=== PATIENT | male | born 1995 | race Caucasian/White ===

== ENCOUNTER 2023-03-14 20:19 | Emergency (ER) | payer SELFPAY ==
[2023-03-14 20:22] VITALS: BP 114/76; PULSE 66; RESP 16; TEMP 36.4; O2SAT 99; BMI 20.3
--- NOTE | 2023-03-14 20:26 | ECG_ITS ---
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 Measurements Intervals [place] Rate: 68 P: -36 [place]: 135 QRS: -69 QRSD: 125 T: 53 QT: 398 QTc: 424 Interpretive Statements SINUS RHYTHM WITH SINUS ARRHYTHMIA LEFT AXIS DEVIATION [QRS AXIS < -30] RIGHT BUNDLE BRANCH BLOCK [120+ ms QRS DURATION, UPRIGHT V1, 40+ ms S IN I/aVL/V4/V5/V6] No previous ECG available for comparison Electronically Signed On 03-15-2023 5:55:12 CDT by Doris Fierro M.D. [id number]
--- NOTE | 2023-03-14 21:47 | ECG_ITS ---
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 Measurements Intervals [place] Rate: 69 P: 4 [place]: 130 QRS: -60 QRSD: 108 T: 56 QT: 372 QTc: 399 Interpretive Statements SINUS RHYTHM LEFT ANTERIOR FASCICULAR BLOCK [QRS AXIS <= -45, QR IN I, RS IN II] Compared to ECG 03/14/2023 20:31:09 Left anterior fascicular block now present Sinus arrhythmia no longer present Left-axis deviation no longer present Right bundle-branch block no longer present Electronically Signed On 03-15-2023 5:54:04 CDT by Doris Fierro M.D. [id number]
--- NOTE | 2023-03-14 22:09 | XRR_ITS ---
PROCEDURE INFORMATION: Exam: XR Chest Exam date and time: 03/14/2023 10:18 PM Age: 27 years old Clinical indication: Chest pressure and right-sided; Patient HX: PT states R sided chest pain while walking; Additional info: Cp TECHNIQUE: Imaging protocol: Radiologic exam of the chest. Views: 1 view. COMPARISON: No relevant prior studies available. FINDINGS: Lungs: The lungs are clear. Pleural spaces: A moderate to large right pneumothorax is noted. Heart/Mediastinum: Unremarkable. No cardiomegaly. No mediastinal shift. Bones/joints: Unremarkable. XR/XR chest 1V portable [id number] IMPRESSION: Moderate to large right pneumothorax.
[2023-03-14 22:28] LABS: Basophils # 0.1 10^3/uL (0.0-0.1); Basophils % 0.4 %; Eosinophils # 0.1 10^3/uL (0.0-0.8); Eosinophils % 0.5 %; Hematocrit 43.1 % (42.0-52.0); Hemoglobin 15.1 g/dL (11.7-16.6); Lymphocytes # 2.7 10^3/uL (0.8-4.8); Mean Corpuscular Hemoglobin 30.2 pg (28.0-34.0); Mean Corpuscular Volume 86.2 fl (80-94); Mean Platelet Volume 8.9 fL (7.4-10.4); Monocytes # 0.8 10^3/uL (0.2-0.9); Monocytes % 4.1 %; Neutrophils % 80.7 %; Nucleated Red Blood Cells % 0 %; Platelet Count 267 10^3/cmm (130-400); Red Cell Distribution Width 12.6 % (12.1-15.1); White Blood Count 19.1 10^3/uL (4.0-10.0)
[2023-03-14 22:39] VITALS: BP 127/74; PULSE 87; RESP 16; O2SAT 100
[2023-03-14 22:43] LABS: D Dimer <= 0.27 ug/mIFEU (0-0.59)
[2023-03-14 22:43] LABS: Charge for UA Resulting for Rev
[2023-03-14 22:45] LABS: Alanine Aminotransferase 17 U/L (0-41); Albumin Level 4.9 g/dL (3.5-5.2); Alkaline Phosphatase 60 U/L (40-130); Anion Gap 17.6 (5-19); Aspartate Amino Transferase 20 U/L (0-40); Blood Urea Nitrogen 14 mg/dL (6-20); Calcium 9.3 mg/dL (8.5-10.5); Carbon Dioxide 21 mmol/L (22-29); Chloride 104 mmol/L (98-107); Globulin 2.3 g/dL (1.3-4.6); Glomerular Filtration Rate 135.3 mL/min (90-130); Glucose 102 mg/dL (65-115); Osmolality Calculated 289 mOsm/kg (285-295); Potassium 3.6 mmol/L (3.5-5.1); Sodium 139 mmol/L (136-145); Total Bilirubin 1.4 mg/dL (0.15-1.2); Total Protein 7.2 g/dL (6.6-8.7)
[2023-03-14 22:53] LABS: Amphetamines Screen Urine Negative (Negative); Barbiturates Screen Urine Negative (Negative); Benzodiazepines Screen Urine Negative (Negative); Cocaine Screen Urine Negative (Negative); Opiate Screen Urine Negative (Negative); PCP Screen Urine Negative (Negative); THC Screen Urine Positive (Negative)
[2023-03-14 22:58] LABS: Troponin(5th) Baseline < 6 ng/L (0-15)
[2023-03-14 23:00] LABS: Bilirubin Urine Neg (Negative); Blood Urine Neg (Negative); Glucose Urine UA Norm (Normal); Ketones Urine 1+ (Negative); Leukocyte Esterase Urine Negative (Negative); Nitrate Urine Negative (Negative); Protein Urine Neg (Negative); Urine Appearance Clear (CLEAR); Urine Color Yellow (Yellow); Urobilinogen Urine 1 mg/dL (Negative); pH Urine 6 (5-7)
[2023-03-14 23:01] LABS: Add Urine Microscopic? NO
[2023-03-14] MEDS: fentaNYL 50 mcg/mL INJ 2mL IVP (23:15)
[2023-03-14] MEDS: lidocaine 1% INJ 10 mL (per mL) 20 ML INJECTION (23:15)
--- NOTE | 2023-03-14 23:15 | PC.NURSE ---
Dr. Aparicior to room for chest tube insertion. 50mcg fentanyl given SIVP per md's verbal order. MD administered 200mg lidocaine at insertion site. 1532 tube inserted and connected to drainage system. water moving with inspiration and exhalation. pt verbalizes feeling better and ease of breathing. pt tolerated procedure without difficulty.
--- NOTE | 2023-03-14 23:25 | XRR_ITS ---
PROCEDURE INFORMATION: Exam: XR Chest Exam date and time: 03/14/2023 11:27 PM Age: 27 years old Clinical indication: Thoravent placement TECHNIQUE: Imaging protocol: Radiologic exam of the chest. Views: 1 view. COMPARISON: CR (CHEST, ) 03/14/2023 10:18 PM XR/XR chest 1V portable [id number] IMPRESSION: A chest tube has been placed in the superior right hemithorax. The right pneumothorax has slightly decreased in size since the prior exam. No other significant change.
--- NOTE | 2023-03-14 23:46 | PM.CONSULT ---
Providers/Reason For Consult Consulting Physician/Specialty*: Anil Crump MD/pulmonary critical care Reason for Consult*: Spontaneous pneumothorax Requesting Physician: Zbigniew Maya Primary Care Provider: Serg Nunez History of Present Illness History of Present Illness Zbigniew Ma is a 27 year old male comes to emergency room with sudden onset chest pain, pleuritic in nature today evening. Patient reported he does not have any medical problems and has not seen a physician in the last 10 years. Admitted smoking marijuana daily. Chest x-ray on admission showed moderate to large right pneumothorax with no mediastinal shift. Patient is hemodynamically stable and saturating 100% on room air. Dr. Cuello consulted pulmonary critical care for Thora vent placement in order to facilitate outpatient management and patient was hemodynamically stable. Patient was seen in the ED-he was anxious about Thora vent placement. His vitals are stable with 100% saturation on room air, normal blood pressure and heart rate Patient's father was at bedside. Father said he had similar spontaneous pneumothorax when he was in the [employer] requiring a 20-day hospitalization with a chest tube to suction and finally ended up having thoracoscopic procedure for ??? Bullectomy. Patient reported that his breathing has somewhat improved but still feels some discomfort. Review of Systems General: Reports: 10 or more systems reviewed and unremarkable except in HPI and below Vitals/I&O/Wt Last Vital Signs Temp 97.5 F L 03/14/23 20:22 Pulse 87 03/14/23 22:39 Resp 16 03/14/23 22:39 BP 127/74 03/14/23 22:39 Pulse Ox 100 03/14/23 22:39 O2 Del Method Room Air 03/14/23 20:22 Weight last 48 hrs Weight 130 lb Physical Exam Narrative: General: alert, NAD HEENT: conj clear, EOMI, PERRL, mmm, Neck: supple, no meningismus Heme: no cervical LAP Respiratory: Inspection: No visible deformity of the chest wall, appears somewhat subcutaneous emphysema with mild crepitus Palpation: bilateral symmetric expansion Percussion: tympanic percussion note on right anterior chest Auscultation: Reduced breath sounds right upper lung zone, other areas normal breath sounds Cardiovascular: rrr, nl s1s2, no mrg Abdomen: soft, nt, nd, no r/g, bs+ Extremities: pulses +, no edema, no c/c : no CVA tenderness Skin: intact, no rash MSK: no back or neck pain Neurologic: grossly intact Data 03/14/23 22:21 03/14/23 22:21 Other Labs: Radiology Impressions Chest X-Ray 03/14/23 23:25 IMPRESSION: A chest tube has been placed in the superior right hemithorax. The right pneumothorax has slightly decreased in size since the prior exam. No other significant change. Laboratory Results WBC 19.1 10^3/uL (4.0-10.0) H 03/14/23 22:21 RBC 5.00 10^6/uL (4.1-5.3) 03/14/23 22:21 Hgb 15.1 g/dL (11.7-16.6) 03/14/23 22:21 Hct 43.1 % (42.0-52.0) 03/14/23 22:21 MCV 86.2 fl (80-94) 03/14/23 22:21 MCH 30.2 pg (28.0-34.0) 03/14/23 22:21 MCHC 35.0 g/dL (30.0-36.0) 03/14/23 22:21 RDW 12.6 % (12.1-15.1) 03/14/23 22:21 Plt Count 267 10^3/cmm (130-400) 03/14/23 22:21 MPV 8.9 fL (7.4-10.4) 03/14/23 22:21 Neut % (Auto) 80.7 % 03/14/23 22:21 Lymph % (Auto) 14.0 % 03/14/23 22:21 [place] % (Auto) 4.1 % 03/14/23 22:21 Eos % (Auto) 0.5 % 03/14/23 22:21 Baso % (Auto) 0.4 % 03/14/23 22:21 Neut # (Auto) 15.40 10^3/uL (1.8-7.7) H 03/14/23 22:21 Lymph # (Auto) 2.7 10^3/uL (0.8-4.8) 03/14/23 22:21 [place] # (Auto) 0.8 10^3/uL (0.2-0.9) 03/14/23 22:21 Eos # (Auto) 0.1 10^3/uL (0.0-0.8) 03/14/23 22:21 Baso # (Auto) 0.1 10^3/uL (0.0-0.1) 03/14/23 22:21 Nucleated RBC % (auto) 0 % 03/14/23 22:21 Nucleated RBCs # 0.0 /100WBC 03/14/23 22:21 D-Dimer <= 0.27 ug/mIFEU (0-0.59) 03/14/23 22:21 Sodium 139 mmol/L (136-145) 03/14/23 22:21 Potassium 3.6 mmol/L (3.5-5.1) 03/14/23 22:21 Chloride 104 mmol/L (98-107) 03/14/23 22:21 Carbon Dioxide 21 mmol/L (22-29) L 03/14/23 22:21 Anion Gap 17.6 (5-19) 03/14/23 22:21 BUN 14 mg/dL (6-20) 03/14/23 22:21 Creatinine 0.7 mg/dL (0.7-1.2) 03/14/23 22:21 GFR Calculation 135.3 mL/min (90-130) H 03/14/23 22:21 Glucose 102 mg/dL (65-115) 03/14/23 22:21 Calculated Osmolality 289 mOsm/kg (285-295) 03/14/23 22:21 Calcium 9.3 mg/dL (8.5-10.5) 03/14/23 22:21 Total Bilirubin 1.4 mg/dL (0.15-1.2) H 03/14/23 22:21 AST 20 U/L (0-40) 03/14/23 22:21 ALT 17 U/L (0-41) 03/14/23 22:21 Alkaline Phosphatase 60 U/L (40-130) 03/14/23 22:21 Troponin T Baseline < 6 ng/L (0-15) 03/14/23 22:21 Total Protein 7.2 g/dL (6.6-8.7) 03/14/23 22:21 Albumin 4.9 g/dL (3.5-5.2) 03/14/23 22:21 Globulin 2.3 g/dL (1.3-4.6) 03/14/23 22:21 Urine Color Yellow (Yellow) 03/14/23 22:33 Urine Appearance Clear (CLEAR) 03/14/23 22:33 Urine pH 6 (5-7) 03/14/23 22:33 Ur Specific [place] 1.020 (1.005-1.030) 03/14/23 22:33 Urine Protein Neg (Negative) 03/14/23 22:33 Urine Glucose (UA) Norm (Normal) 03/14/23 22:33 Urine Ketones 1+ (Negative) H 03/14/23 22:33 Urine Blood Neg (Negative) 03/14/23 22:33 Urine Nitrate Negative (Negative) 03/14/23 22: Urine Bilirubin Neg (Negative) 03/14/23 22:33 Urine Urobilinogen 1 mg/dL (Negative) H 03/14/23 22:33 Ur Leukocyte Esterase Negative (Negative) 03/14/23 22:33 Urine Opiates Screen Negative ng/mL (Negative) 03/14/23 22:33 Ur Barbiturates Screen Negative ng/mL (Negative) 03/14/23 22:33 Ur Phencyclidine Scrn Negative ng/mL (Negative) 03/14/23 22:33 Ur Amphetamines Screen Negative ng/mL (Negative) 03/14/23 22:33 U Benzodiazepines Scrn Negative ng/mL (Negative) 03/14/23 22:33 Urine Cocaine Screen Negative ng/mL (Negative) 03/14/23 22:33 U Marijuana (THC) Screen Positive ng/mL (Negative) H 03/14/23 22:33 A&P Assessment and plan (1) Spontaneous pneumothorax: (2) Marijuana user: Plan #Spontaneous pneumothorax -Patient admitted using marijuana daily-which is a risk factor for developing spontaneous pneumothoraces -Chest x-ray showed moderate to large right pneumothorax with no mediastinal shift -13 Polish Thora vent placed and connected to suction temporarily -Repeat chest x-ray 45 minutes later-continued improvement of right pneumothorax with some residual apical pneumothorax still present. -We will obtain a CT chest to check for any underlying cystic lung disease; father gives similar history of spontaneous pneumothorax which required 20-day hospitalization with chest tube followed by bleb resection. -Patient can be discharged home with Thora vent and and can follow-up as outpatient either with me or CT surgeon depending on availability. We will make necessary arrangements. -Patient is instructed to come to emergency room if there is worsening shortness of breath and chest pain Consult Attestations Medical Necessity Statement: Patient is hemodynamically stable and his pneumothorax is improving after placing Thora vent Time Spent in Patient Care: Greater than 35 minutes (>than 50% of time spent in counselling and/or direct pt care on unit). Critical Care Time: The high probability of a clinically significant, sudden or life threatening deterioration of the patient's [pulmonary] system(s) required my full and direct attention, intervention and personal management. The critical care time is as shown. This time is in addition to time spent performing any reported procedures but includes the following: [x] Data and vital sign review and interpretation [x] Patient assessment, examination and intervention [x] Documentation [x] Medication orders and management Critical Care Time (min): 72 Coding Level of Care Code 64457 Diagnoses Spontaneous pneumothorax J93.83 Marijuana user F12.90 Time Spent (min) 72
--- NOTE | 2023-03-14 23:47 | P.OP_ITS ---
Operative Report Date of procedure: March 14, 2023 Procedure done: 13 Tunisian right Thora vent placement Surgeon: Present Markusr MD SUBRAMANIAN Brief History: 27-year-old Mr. Zbigniew Montgomery, daily cannabis user-presented to emergency room with increased pleuritic chest pain, on admission chest x-ray showed moderate to large right pneumothorax. Pulmonary critical care consulted for Thora vent placement Procedure: Date of procedure: 03/14/2023 Pre-op Diagnosis: Spontaneous pneumothorax Post-op diagnosis: same Procedure Done: 13 Tunisian thoracic vent placement Pathology: none sent Environmental Control Administrator: Anil Crump MD [facility] Anesthesia: Local Complications: None: Post procedure chest x-ray reveals lung expansion without evidence for pneumothorax Condition: Stable Brief History: 13 Tunisian thoracic vent placement His right anterior chest wall was then sterilely prepped and draped. 1% lidocaine was infiltrated in the mid clavicular line over the second intercostal space. A #11 scalpel blade was used to incise the skin. Next, a trocar 13 Tunisian thoracic vent was inserted through the incision and then by direct firm and controlled pressure into the right pleural space where the vent was advanced over the trocar as it was removed. There was a prompt return of air. The vent was secured to the skin with adhesive tabs and also with 2-0 silk suture. The vent was then connected to Pleur-evac suction where further air was evacuated. Vital signs remained stable throughout the procedure. Dressings were secured. I did risk reduction counselor patient and his father at the completion of the procedure. 45 minutes post procedure chest x-ray: Continued improvement of the right pneumothorax compared to prior exam. A small right pneumothorax remains. Complications: None
--- NOTE | 2023-03-14 23:48 | ED_ITS ---
HPI - Chest Pain General: Chief Complaint: Chest Pain Stated Complaint: SOB, chest pain Time Seen by Provider: 03/14/23 21:36 Source: patient History of Present Illness: Healthy 27-year-old male presenting with right-sided pleuritic type chest pain while at work. He notes his pain is much improved on examination. No fever. No cough. 10/10 pain initially. Pain does worsen a bit with deep inspiration. No long car trips. No swollen legs. He is mildly short of breath. MD complaint: chest pain Pertinent past history: other Onset (ago): hour(s) Timing of current episode: constant Prior episodes: No Onset: during exertion (mild) Pain location: right chest Pain radiation: none Severity: moderate Quality: sharp Relieving factors: other Exacerbating factors: inspiration Associated symptoms: Reports dyspnea; Deny abdominal pain, diaphoresis, fever(s), leg edema, nausea, palpitations or vomiting Treatment prior to arrival: none Review of Systems Const: Denies: fever(s) or diaphoresis ENMT: Denies: throat pain Card: Reports: chest pain; Denies: palpitations Resp: Reports: dyspnea; Denies: productive cough or non-productive cough GI: Denies: abdominal pain, nausea or vomiting Psych: Reports: anxiety Physical Exam Const: COMMON NORMALS: no acute distress GENERAL APPEARANCE: cooperative; not ill appearing and not frail appearing HENMT: COMMON NORMALS: normocephalic, atraumatic and Normal external nose present HEAD & SCALP: normocephalic and atraumatic FACE & SINUS: normal facial exam and face symmetric NOSE: Normal external nose present Eye: COMMON NORMALS: Equal, round and reactive pupils present and EOMs intact bilaterally PUPIL: Yes Equal, round and reactive pupils present Neck/C-Spine: GENERAL: Yes trachea midline Chest: CHEST: Yes Symmetrical chest wall rise Resp: COMMON NORMALS: normal respiratory effort, No retractions, No use of accessory muscles and clear to auscultation bilaterally AUSCULTATION: clear to auscultation bilaterally Cardio: COMMON NORMALS: regular rate and regular rhythm RATE: regular rate RHYTHM: regular rhythm GI: COMMON NORMALS: Normal to inspection, nondistended, normoactive bowel sounds present Extremity: COMMON NORMALS: no pedal edema Neuro: CURTIS COMA SCALE: document GCS findings [place] coma scale eye opening: Spontaneous Curtis coma scale verbal response: Orientated Curtis coma scale motor response: Obey commands Curtis coma scale total score: 15 SENSORY EXAM: Yes extremities (intact) Psych: COMMON NORMALS: speech normal SPEECH: Yes normal speech Skin: COMMON NORMALS: no rashes or lesions noted GENERAL SKIN EXAM: no rashes or lesions noted Course Vital Signs: Vital signs: Vital Signs Temperature 97.5 F L 03/14/23 20:22 Pulse Rate 80 03/15/23 00:07 Respiratory Rate 21 H 03/15/23 00:07 Blood Pressure 132/75 03/15/23 00:07 Pulse Oximetry 100 03/15/23 00:07 Oxygen Delivery Me thod Room Air 03/15/23 00:07 MDM - Chest Pain Medical Decision Making EKG showed sinus rhythm with normal axis. Rate of 70. No acute ST changes. Intervals are normal. Chest x-ray revealed approximately 40% simple pneumothorax on the right. Leukocytosis is 19. Other laboratory is benign. Vitals been stable. Heart rate has been in the 60s and 70s. Blood pressure normal. Saturations been 98 to 100% on room air. Consulted with pulmonology. He has agreed to come in for Thora vent placement given nature of simple pneumothorax. He is at the bedside currently. Successful Thora vent placement by pulmonology. CT reveals Thora vent in appropriate position. Pneumothorax is slowly reducing in size. Pulmonology wishes the patient to follow-up with them or chest surgery this coming week regarding repeat imaging and possibly pulling the tube. He knows to return for worsening shortness of breath or other symptoms in the meantime Lab Data 03/14/23 22:21 03/14/23 22:21 Radiology Impressions Chest X-Ray 03/15/23 00:05 IMPRESSION: Continued improvement of the right pneumothorax is appreciated compared to the prior exam. A small right pneumothorax remains. No other change. Laboratory Results WBC 19.1 10^3/uL (4.0-10.0) H 03/14/23 22:21 RBC 5.00 10^6/uL (4.1-5.3) 03/14/23 22:21 Hgb 15.1 g/dL (11.7-16.6) 03/14/23 22:21 Hct 43.1 % (42.0-52.0) 03/14/23 22:21 MCV 86.2 fl (80-94) 03/14/23 22:21 MCH 30.2 pg (28.0-34.0) 03/14/23 22:21 MCHC 35.0 g/dL (30.0-36.0) 03/14/23 22:21 RDW 12.6 % (12.1-15.1) 03/14/23 22:21 Plt Count 267 10^3/cmm (130-400) 03/14/23 22:21 MPV 8.9 fL (7.4-10.4) 03/14/23 22:21 Neut % (Auto) 80.7 % 03/14/23 22:21 Lymph % (Auto) 14.0 % 03/14/23 22:21 [place] % (Auto) 4.1 % 03/14/23 22:21 Eos % (Auto) 0.5 % 03/14/23 22:21 Baso % (Auto) 0.4 % 03/14/23 22:21 Neut # (Auto) 15.40 10^3/uL (1.8-7.7) H 03/14/23 22:21 Lymph # (Auto) 2.7 10^3/uL (0.8-4.8) 03/14/23 22:21 [place] # (Auto) 0.8 10^3/uL (0.2-0.9) 03/14/23 22:21 Eos # (Auto) 0.1 10^3/uL (0.0-0.8) 03/14/23 22:21 Baso # (Auto) 0.1 10^3/uL (0.0-0.1) 03/14/23 22:21 Nucleated RBC % (auto) 0 % 03/14/23 22:21 Nucleated RBCs # 0.0 /100WBC 03/14/23 22:21 D-Dimer <= 0.27 ug/mIFEU (0-0.59) 03/14/23 22:21 Sodium 139 mmol/L (136-145) 03/14/23 22:21 Potassium 3.6 mmol/L (3.5-5.1) 03/14/23 22:21 Chloride 104 mmol/L (98-107) 03/14/23 22:21 Carbon Dioxide 21 mmol/L (22-29) L 03/14/23 22:21 Anion Gap 17.6 (5-19) 03/14/23 22:21 BUN 14 mg/dL (6-20) 03/14/23 22:21 Creatinine 0.7 mg/dL (0.7-1.2) 03/14/23 22:21 GFR Calculation 135.3 mL/min (90-130) H 03/14/23 22:21 Glucose 102 mg/dL (65-115) 03/14/23 22:21 Calculated Osmolality 289 mOsm/kg (285-295) 03/14/23 22:21 Calcium 9.3 mg/dL (8.5-10.5) 03/14/23 22:21 Total Bilirubin 1.4 mg/dL (0.15-1.2) H 03/14/23 22:21 AST 20 U/L (0-40) 03/14/23 22:21 ALT 17 U/L (0-41) 03/14/23 22:21 Alkaline Phosphatase 60 U/L (40-130) 03/14/23 22:21 Troponin T Baseline < 6 ng/L (0-15) 03/14/23 22:21 Total Protein 7.2 g/dL (6.6-8.7) 03/14/23 22:21 Albumin 4.9 g/dL (3.5-5.2) 03/14/23 22:21 Globulin 2.3 g/dL (1.3-4.6) 03/14/23 22:21 Urine Color Yellow (Yellow) 03/14/23 22:33 Urine Appearance Clear (CLEAR) 03/14/23 22:33 Urine pH 6 (5-7) 03/14/23 22:33 Ur Specific [place] 1.020 (1.005-1.030) 03/14/23 22:33 Urine Protein Neg (Negative) 03/14/23 22:33 Urine Glucose (UA) Norm (Normal) 03/14/23 22:33 Urine Ketones 1+ (Negative) H 03/14/23 22:33 Urine Blood Neg (Negative) 03/14/23 22:33 Urine Nitrate Negative (Negative) 03/14/23 22:33 Urine Bilirubin Neg (Negative) 03/14/23 22:33 Urine Urobilinogen 1 mg/dL (Negative) H 03/14/23 22:33 Ur Leukocyte Esterase Negative (Negative) 03/14/23 22:33 Urine Opiates Screen Negative ng/mL (Negative) 03/14/23 22:33 Ur Barbiturates Screen Negative ng/mL (Negative) 03/14/23 22:33 Ur Phencyclidine Scrn Negative ng/mL (Negative) 03/14/23 22:33 Ur Amphetamines Screen Negative ng/mL (Negative) 03/14/23 22:33 U Benzodiazepines Scrn Negative ng/mL (Negative) 03/14/23 22:33 Urine Cocaine Screen Negative ng/mL (Negative) 03/14/23 22:33 U Marijuana (THC) Screen Positive ng/mL (Negative) H 03/14/23 22:33 Discharge Plan Discharge Patient Disposition: Home Clinical Impression: Pneumothorax Condition: Stable Discharge Orders: Discharge ED (Routine); Ordered 03/15/23 Ordered By: Zbigniew Cuello Referrals: DatarAnil MD [Physician] - 4-7 days Serg Nunez FNP [Primary Care Provider] - Patient Instructions: Spontaneous Pneumothorax (ED) Activity Restrictions/Additional Instructions: Follow-up with pulmonology/chest surgery as directed. You will receive a call on Friday or Friday related to this. Return immediately to the ER for fever greater than 100, increasing shortness of breath, increasing chest discomfort, any other concerning symptoms. Chest catheter care per your aircraft magneto mechanic's direction. Coding Level of Care Code ED [employer] for Vance Yadav
--- NOTE | 2023-03-15 00:05 | XRR_ITS ---
PROCEDURE INFORMATION: Exam: XR Chest Exam date and time: 03/15/2023 12:08 AM Age: 27 years old Clinical indication: Device placement; Chest tube; Patient HX: Pneumo TECHNIQUE: Imaging protocol: Radiologic exam of the chest. Views: 1 view. COMPARISON: CR (CHEST, ) 03/14/2023 11:27 PM XR/XR chest 1V portable [id number] IMPRESSION: Continued improvement of the right pneumothorax is appreciated compared to the prior exam. A small right pneumothorax remains. No other change.
[2023-03-15 00:07] VITALS: BP 132/75; PULSE 80; RESP 21; O2SAT 100
--- NOTE | 2023-03-15 00:24 | CTR_ITS ---
PROCEDURE INFORMATION: Exam: CT Chest Without Contrast; Diagnostic Exam date and time: 03/15/2023 1:08 AM Age: 27 years old Clinical indication: Other: Pneumo; Prior surgery; Surgery date: Post-operative (0-2 days); Surgery type: Chest tube; Additional info: R pneumothorax TECHNIQUE: Imaging protocol: Diagnostic computed tomography of the chest without contrast. Total images: 1 Radiation optimization: All CT scans at this facility use at least one of these dose optimization techniques: automated exposure control; mA and/or kV adjustment per patient size (includes targeted exams where dose is matched to clinical indication); or iterative reconstruction. REPORTING DATA: Count of CT and Cardiac NM exams in prior 12 months: This patient has received 0 known CTs and 0 known cardiac nuclear medicine studies in the 12 months prior to the current study. COMPARISON: CR (CHEST, ) 03/15/2023 12:08 AM RADIATION DOSE METRICS: Total DLP (mGy-cm): 259.36 FINDINGS: Tubes, catheters and devices: Small bore right chest tube entering superior pleural space from an anterior approach. Small amount of subcutaneous emphysema in the left chest wall. Lungs: See Pleural spaces finding. Pleural spaces: Moderate right pneumothorax with posterior dependent and minimal anterior atelectasis. Heart: Unremarkable. No cardiomegaly. No pericardial effusion. Coronary arteries: No coronary arterial calcification is detected. Lymph nodes: Unremarkable. No enlarged lymph nodes. Vasculature: Unremarkable. No aortic aneurysm. Bones/joints: Unremarkable. No acute fracture. Soft tissues: See Tubes, catheters and devices finding. CT/CT chest wo con [id number] IMPRESSION: 1. Small bore right chest tube entering superior pleural space from an anterior approach. Small amount of subcutaneous emphysema in the left chest wall. 2. Moderate right pneumothorax with posterior dependent and minimal anterior atelectasis.
[2023-03-15] MEDS: lidocaine 1% INJ 10 mL (per mL) 20 ML INJECTION (01:58)
== END 2023-03-15 02:29 | disposition home or self-care (01) ==
PROVIDERS: Emergency Provider Emergency Medicine; Family Provider Nurse Practitioner Family; PCP Nurse Practitioner Family
DX: J93.9 Pneumothorax, unspecified (principal)
CPT/HCPCS: 71045; 71250; 80053; 80306; 81003; 84484; 85025; 85378; 93005; 96374; 99285; J3010

== ENCOUNTER 2023-03-17 10:20 | Outpatient (CLI) | payer SELFPAY ==
--- NOTE | 2023-03-17 10:38 | XRR_ITS ---
PROCEDURE INFORMATION: Exam: XR Chest Exam date and time: 03/17/2023 10:44 AM Age: 27 years old Clinical indication: Condition or disease; Lung condition and disease; Pneumothorax; Other: Not specified; Patient HX: Patient's right lung collapsed last Friday (03/14/2023). Dr. Crump wants to see if the lung is healing up TECHNIQUE: Imaging protocol: Radiologic exam of the chest. Views: 2 views. COMPARISON: CT chest con [id number] 03/15/2023 1:08 AM FINDINGS: Tubes, catheters and devices: Heimlich valve noted on the right. Lungs: Unremarkable. No consolidation. Pleural spaces: Tiny right apical pneumothorax noted. No pleural effusion. Heart/Mediastinum: Unremarkable. No cardiomegaly. Bones/joints: Unremarkable. Soft tissues: Small amount of subcutaneous emphysema is seen over the right lateral chest wall. XR/XR chest 2V* [id number] IMPRESSION: Tiny right apical pneumothorax with Heimlich valve in place.
== END 2023-03-17 10:21 | disposition home or self-care (01) ==
PROVIDERS: PCP Nurse Practitioner Family; Visit Provider Internal Medicine Pulmonary Disease
DX: J93.83 Other pneumothorax (principal)
CPT/HCPCS: 71046

== ENCOUNTER 2023-03-25 09:46 | Outpatient (CLI) | payer SELFPAY ==
--- NOTE | 2023-03-25 10:01 | XR_ITS ---
WS: [id number] CHEST 2 VIEWS HISTORY: pneumothorax COMPARISON: 03/17/2023 and 03/15/2023 Lungs: Mild hyperexpanded lungs. Previously described RIGHT apical pneumothorax is not evident. Heiml ich valve remains over the RIGHT chest. Lungs are mildly hyperexpanded. No mass or pneumonia. Cardiac size: Normal. Mediastinum/Aorta: Normal mediastinum. Bones: Normal. XR/XR chest 2V* [id number] IMPRESSION: 1. No residual RIGHT apical pneumothorax identified today. 2. Heimlich valve remains unchanged in position.
== END 2023-03-25 09:47 | disposition home or self-care (01) ==
LOC: RAD 09:53
PROVIDERS: PCP Nurse Practitioner Family; Visit Provider Thoracic Surgery (Cardiothoracic Vascular Surgery)
DX: J93.83 Other pneumothorax (principal)
CPT/HCPCS: 71046